=== PATIENT | male | born 1995 | race Caucasian/White ===

== ENCOUNTER 2017-04-03 09:44 | Emergency (ER) | payer SELFPAY ==
[2017-04-03 10:56] VITALS: BP 128/60
[2017-04-03] MEDS ORDERED: Tetan/Diph/Pertus SYR(Tdap)* 0.5 ML SYR(BOOSTRIX) use SYR IM ONE (11:16)
--- NOTE | 2017-04-03 11:16 | UC ---
Laceration HPI - HPI Summary HPI Summary: cut right right finger lateral pip joint on metal this morning at work - History Of Current Complaint Chief Complaint: UCLaceration Stated Complaint: FINGER LACERATION Time Seen by Provider: 04/03/17 11:09 Hx Obtained From: Patient Laceration Location: Finger - right ring finger- Mechanism Of Injury: Sharp Trauma Onset/Duration: Sudden Onset, Lasting Days - 2, Still Present Severity: Mild Aggravating Factors: Nothing - Allergies/Home Medications Allergies/Adverse Reactions: Allergies Allergy/AdvReac Type Severity Reaction Status Date / Time No Known Allergies Allergy Verified 04/03/17 10:55 Home Medications: Home Medications NK [No Home Medications Reported] 04/03/17 [History Confirmed 04/03/17] PMH/Surg Hx/FS Hx/Imm Hx Previously Healthy: Yes - Surgical History Surgical History: Yes Surgery Procedure, Year, and Place: APPENDECTOMY 2009 - Family History Known Family History: Positive: None - Social History Occupation: Employed Full-time Lives: With Family Alcohol Use: Occasionally Substance Use Type: None Smoking Status (MU): Never Smoked Tobacco - Immunization History Hx Tetanus, Diphtheria Vaccination: Yes Review of Systems Constitutional: Negative Skin: Other - laceration lateral right 4th finger Eyes: Negative ENT: Negative Respiratory: Negative Cardiovascular: Negative Gastrointestinal: Negative Genitourinary: Negative Motor: Negative Neurovascular: Negative Musculoskeletal: Negative Neurological: Negative Psychological: Negative All Other Systems Reviewed And Are Negative: Yes Physical Exam Triage Information Reviewed: Yes Appearance: Well-Appearing, No Pain Distress, Well-Nourished Vital Signs: Initial Vital Signs Temp 97.9 F 04/03/17 10:53 Pulse 61 04/03/17 10:53 Resp 16 04/03/17 10:53 BP 128/60 04/03/17 10:53 Pulse Ox 100 04/03/17 10:53 Vital Signs Reviewed: Yes Eye Exam: Normal Eyes: Positive: Conjunctiva Clear ENT Exam: Normal ENT: Positive: Normal ENT inspection, Hearing grossly normal. Negative: Nasal congestion, Nasal drainage, Trismus, Muffled/hoarse voice Dental Exam: Normal Neck exam: Normal Neck: Positive: Supple, Nontender, No Lymphadenopathy Respiratory Exam: Normal Respiratory: Positive: Chest non-tender, Lungs clear, Normal breath sounds, No respiratory distress, No accessory muscle use Cardiovascular Exam: Normal Cardiovascular: Positive: RRR, Pulses Normal, Brisk Capillary Refill Musculoskeletal Exam: Normal Musculoskeletal: Positive: Strength Intact, ROM Intact, No Edema Neurological Exam: Normal Neurological: Positive: Alert, Muscle Tone Normal Psychological Exam: Normal Skin Exam: Other Skin: Positive: Other - 4 cm total lenth flap laceration lateral right 4th finger--well approximated no bleeding Laceration Repair - Laceration Repair 1 Description: Joint Proximity - lateral right 4th pip Laceration Size After Repair: Length (cm) - 4, Width (mm) - 2, Depth (mm) - 2 Modified For Repair: No Cleansing Completed Via Routine Prep: Yes Irrigation With Pressure Irrigation Device: Yes Closure Material: Skin Adhesive Re-Evaluation - Re-Evaluation First Eval Change: Improved - wound well approximated after glue dried dresssing and splint applied Laceration Course/Dx - Course/Dx Course Of Treatment: dresssing splint glue instructions follow with pcp prn - Differential Dx - Laceration/Wound Differental Diagnoses: Cellulitis, Hematoma, Laceration Provider Diagnoses: Laceration with surgical glue repair Discharge - Discharge Plan Condition: Stable Disposition: HOME Patient Education Materials: Diphtheria/Acellular Pertussis/Tetanus Booster Vaccine (By injection), Skin Adhesive Care (ED), Steristrips (ED) Referrals: [facility] [place] [facility] [Outside] - If Needed No Primary Care Phys,NOPCP [Primary Care Provider] -
[2017-04-03] MEDS ORDERED: Benzoin Compound STICK ONE (11:38)
== END 2017-04-03 12:21 | disposition home or self-care (01) ==
LOC: UCEAST 09:44
DX: S61.214A Laceration without foreign body of right ring finger without damage to nail, initial encounter (principal); W26.8XXA Contact with other sharp object(s), not elsewhere classified, initial encounter; Y93.9 Activity, unspecified; Y99.9 Unspecified external cause status
CPT/HCPCS: 90471; 90715; 99203; G0463